=== PATIENT | female | born 1985 | race Caucasian/White ===

== ENCOUNTER 2019-04-26 00:06 | Emergency (ER) | payer MEDICAID ==
[~2019-04-26] VITALS: Ht 170.2 cm; Wt 68.0 kg
[~2019-04-26 00:06] MED LIST: NO HOME MEDS
[2019-04-26 00:56] VITALS: BP 117/73
--- NOTE | 2019-04-26 00:59 | NUR ---
PT IS 33 YO FEMALE BIB FROM ALF C/O LEFT SIDED CHEST PAIN, NONRADIATING, STARTED WHILE PT WAS RESTING AT 1200 04/25, OFF AND ON, +NAUSEA, +DYSPNEA, PT HAS BEEN IN ALF FOR 2 WEEKS, NO DRUGS X2 WEEKS, HAS USED METH AND HEROIN, ETOH, PT IS CALM AND COOPERATIVE, [facility] DEPUTIES AT BEDSIDE
[2019-04-26 01:02] LABS: BASOPHILS # (AUTO) 0.1 X10'3 (0-0.2); EOSINOPHILS % (AUTO) 0.2 % (0-6); HEMATOCRIT 43.7 % (35.0-45.0); MEAN CORPUSCULAR HEMOGLOBIN 30.1 PG (27.0-31.0); MEAN CORPUSCULAR HGB CONC 34.4 g/dL (33.0-36.5); MEAN CORPUSCULAR VOLUME 87.5 FL (78-98); MEAN PLATELET VOLUME 9.7 FL (7.4-10.4); MONOCYTES # (AUTO) 0.4 X10'3 (0-0.9); MONOCYTES % (AUTO) 4.8 % (2-12); NEUTROPHILS # (AUTO) 5.7 X10'3 (1.8-7.7); PLATELET COUNT 278 X10'3 (140-440); RED CELL DISTRIBUTION WIDTH 13.4 % (11.5-14.5); WHITE BLOOD COUNT 8.2 X10'3 (4.5-11.0)
[2019-04-26 01:12] LABS: ALANINE AMINOTRANSFERASE 14 U/L (12-78); ALBUMIN 3.6 G/DL (3.4-5.0); ALBUMIN/GLOBULIN RATIO 0.7 (1.1-1.5); ALKALINE PHOSPHATASE 59 IU/L (46-116); ANION GAP 10 (8-16); ASPARTATE AMINO TRANSFERASE 11 U/L (10-37); BILIRUBIN,TOTAL 0.4 MG/DL (0.1-1.0); BLOOD UREA NITROGEN 18 MG/DL (7-18); BUN/CREATININE RATIO 20.7 (6.6-38.0); CALCIUM 9.1 MG/DL (8.5-10.1); CHLORIDE 105 MMOL/L (99-107); CREATININE 0.87 MG/DL (0.40-0.90); GLUCOSE 103 MG/DL (70-104); MAGNESIUM 2.1 MG/DL (1.5-2.4); POTASSIUM 4.6 MMOL/L (3.5-5.1); SODIUM 141 MMOL/L (135-145); TOTAL CARBON DIOXIDE 25.9 MMOL/L (24-32); TOTAL PROTEIN 8.6 G/DL (6.4-8.2); eGFR 75 ML/MIN
[2019-04-26] MEDS ORDERED: NAPR-56 PO (01:29)
[2019-04-26] MEDS ORDERED: HYDROcodone/acetaminophen 10/325mg tab PO ONE (01:30)
== END 2019-04-26 01:59 ==
LOC: ER 00:07
DX: R07.81 Pleurodynia (principal); R50.9 Fever, unspecified; J45.909 Unspecified asthma, uncomplicated; F17.200 Nicotine dependence, unspecified, uncomplicated; F15.90 Other stimulant use, unspecified, uncomplicated; F11.90 Opioid use, unspecified, uncomplicated; Z98.890 Other specified postprocedural states; Z98.51 Tubal ligation status; Z79.899 Other long term (current) drug therapy
CPT/HCPCS: 36415; 71045; 80053; 83735; 84484; 85025; 93005; 99284

== ENCOUNTER 2021-11-01 00:20 | Emergency (ER) | payer MEDICAID, OTHER ==
[~2021-11-01] VITALS: Ht 170.2 cm; Wt 72.7 kg
[2021-11-01] MEDS ORDERED: NALO4SPR BOTHNARES (02:19)
[2021-11-01 02:21] VITALS: BP 117/76
== END 2021-11-01 02:53 | disposition home or self-care (01) ==
LOC: ER 00:21
DX: T40.601A Poisoning by unspecified narcotics, accidental (unintentional), initial encounter (principal); F15.90 Other stimulant use, unspecified, uncomplicated; F11.90 Opioid use, unspecified, uncomplicated; Z98.51 Tubal ligation status; Z98.890 Other specified postprocedural states; Z79.899 Other long term (current) drug therapy; Y92.89 Other specified places as the place of occurrence of the external cause
CPT/HCPCS: 93005; 99283

== ENCOUNTER → 2023-11-09 | Emergency (ER) | payer OTHER ==
[~2023-11-09] VITALS: Ht 170.2 cm; Wt 78.4 kg
[~2023-11-09] MED LIST changes: +CLIN300C3 PO; +IBUP-1984 PO; +NALO4SPR BOTHNARES; +PRED20TA PO; +iohexol 300mg/ml 100ml inj. ONE
[2023-11-09 21:27] VITALS: BP 114/74; PULSE 93; RESP 17; TEMP 99; O2SAT 100
[2023-11-09] MEDS: HYDROcodone/acetaminophen 5mg/325mg tablet PO ONE (22:58)
[2023-11-09] MEDS: clindamycin 150mg capsule PO ONE (22:58)
[2023-11-09] MEDS: dexamethasone sod phosphate 10mg/ml inj IM STA (22:58)
[2023-11-09 23:39] LABS: BILIRUBIN,URINE MODERATE (Neg); CLARITY,URINE TURBID (Clear); COLOR,URINE YELLOW (Yellow); GLUCOSE, URINE NEGATIVE (Neg); KETONES,URINE TRACE mg/dl (Neg); LEUKOCYTE ESTERASE ,URINE SMALL (Neg); NITRITES, URINE NEGATIVE (Neg); OCCULT BLOOD,URINE NEGATIVE (Neg); PROTEIN,URINE 30 mg/dl (Neg); UROBILINOGEN,URINE 0.2 E.U/dL (0.2-1.0)
[2023-11-09 23:40] LABS: URINE HCG NEGATIVE (NEG)
[2023-11-09 23:45] LABS: UA COLLECTION TYPE CLN CATCH MIDSTREAM
[2023-11-09 23:50] LABS: SQUAMOUS EPITHELIAL CELL,UR MANY /LPF (FEW)
[2023-11-09 23:51] LABS: TRANSITIONAL EPI CELLS,URINE MODERATE /HPF
[2023-11-09 23:52] LABS: HYALINE CASTS 0-3 /LPF (NEGATIVE); WBC,URINE 30-50 /HPF (0-4)
[2023-11-09 23:53] LABS: BACTERIA,URINE FEW /HPF (Neg); RBC,URINE 0-2 /HPF (0-2)
== END | disposition left against medical advice (07) ==
LOC: ER 21:15
DX: K04.7 Periapical abscess without sinus (principal); L03.211 Cellulitis of face; J45.909 Unspecified asthma, uncomplicated; F15.90 Other stimulant use, unspecified, uncomplicated; F11.90 Opioid use, unspecified, uncomplicated; Z98.890 Other specified postprocedural states
CPT/HCPCS: 81001; 81025; 96372; 99283; J1100; J3490; Q9967